=== PATIENT | male | born 1965 | race African-American/Black ===

== ENCOUNTER 2018-08-23 11:27 | Inpatient (IN) | payer OTHER ==
[2018-08-23 13:07] VITALS: BMI 21.7
--- NOTE | 2018-08-23 15:35 | HP ---
CIWA Score Nausea/Vomitin-No Nausea/No Vomiting Muscle Tremors: 4-Moderate,w/Arms Extend Anxiety: 4-Mod. Anxious/Guarded Agitation: 4-Moderately Restless Paroxysmal Sweats: 3 Orientation: 0-Oriented Tacttile Disturbances: 0-None Auditory Disturbances: 0-None Visual Disturbances: 0-None Headache: 0-None Present CIWA-Ar Total Score: 15 - Admission Criteria OASAS Guidelines: Admission for Medically Managed Detox: Requires at least one of the followin. CIWA greater than 12 2. Seizures within the past 24 hours 3. Delirium tremens within the past 24 hours 4. Hallucinations within the past 24 hours 5. Acute intervention needed for co occurring medical disorder 6. Acute intervention needed for co occurring psychiatric disorder 7. Severe withdrawal that cannot be handled at a lower level of care (continued vomiting, continued diarrhea, abnormal vital signs) requiring intravenous medication and/or fluids 8. Admission ROS [facility] Chief Complaint: I am an alcoholic and need help. I was sober for about 3yrs and recently relapsed. Allergies/Adverse Reactions: Allergies Allergy/AdvReac Type Severity Reaction Status Date / Time egg Allergy Severe Hives Verified 12/04/13 13:24 peanut Allergy Severe Hives Verified 12/04/13 13:24 History of Present Illness: pt is a 52yrold male with a 3yr of sobriety and recently relapsed seeking treatment for his alcohol dependence. Exam Limitations: No Limitations - Ebola screening Have you traveled outside of the country in the last 21 days: No Have you had contact with anyone from an Ebola affected area: No Have you been sick,other than usual withdrawal symptoms: No Do you have a fever: No - Review of Systems Constitutional: Chills, Diaphoresis, Loss of Appetite, Night Sweats, Changes in sleep EENT: reports: No Symptoms Reported Respiratory: reports: No Symptoms reported Cardiac: reports: Syncope GI: reports: Diarrhea, Poor Appetite, Poor Fluid Intake : reports: No Symptoms Reported Musculoskeletal: reports: No Symptoms Reported Integumentary: reports: Flushing, Sweating Endocrine: reports: Excessive Sweating, Flushing, Intolerance to Cold, Intolerance to Heat Hematology: reports: No Symptoms Reported Psychiatric: reports: Judgement Intact, Mood/Affect Appropiate, Orientated x3, Agitated, Anxious Other Systems: Reviewed and Negative Patient History - Patient Medical History Hx Anemia: No Hx Asthma: No Hx Chronic Obstructive Pulmonary Disease (COPD): No Hx Cancer: No Hx Cardiac Disorders: No Hx Congestive Heart Failure: No Hx Hypertension: Yes (lisinopril 20mg qdaily) Hx Hypercholesterolemia: No Hx Pacemaker: No HX Cerebrovascular Accident: No Hx Seizures: No Hx Dementia: No Hx Diabetes: Yes (on metformin 500mg bid) Hx Gastrointestinal Disorders: No Hx Liver Disease: No Hx Genitourinary Disorders: No Hx Sexually Transmitted Disorders: No Hx Renal Disease (ESRD): No Hx Thyroid Disease: No Hx Human Immunodeficiency Virus (HIV): No (negative 4 months ago) Hx Hepatitis C: No Hx Depression: No Hx Suicide Attempt: No (denies) Hx Bipolar Disorder: No Hx Schizophrenia: No - Patient Surgical History Past Surgical History: No Hx Neurologic Surgery: No Hx Cataract Extraction: No Hx Cardiac Surgery: No Hx Lung Surgery: No Hx Breast Surgery: No Hx Breast Biopsy: No Hx Abdominal Surgery: No Hx Appendectomy: No Hx Cholecystectomy: No Hx Genitourinary Surgery: No Hx Section: No Hx Orthopedic Surgery: No Anesthesia Reaction: No - PPD History Previous Implant?: Yes Documented Results: Negative w/o proof - Reproductive History Patient is a Female of Child Bearing Age (11 -55 yrs old): No - Smoking Cessation Smoking history: Current every day smoker Have you smoked in the past 12 months: Yes Aproximately how many cigarettes per day: 20 Hx Chewing Tobacco Use: No Initiated information on smoking cessation: Yes 'Breaking Loose' booklet given: 08/23/18 - Substance & Tx. History Hx Alcohol Use: Yes Hx Substance Use: No Substance Use Type: Alcohol Hx Substance Use Treatment: Yes (last detox 2013 [facility]) - Substances abused Alcohol Substance route: Oral Frequency: Daily Amount used: 1/5 - 1 pint daily Age of first use: 12 Date of last use: 08/22/18 Family Disease History - Family Disease History Family Disease History: Diabetes: Father () Admission Physical Exam BHS - Vital Signs Vital Signs: Vital Signs - 24 hr 08/23/18 12:58 Temperature 97.8 F Pulse Rate 82 Respiratory 18 Rate Blood Pressure 164/84 - Physical General Appearance: Yes: Appropriately Dressed, Moderate Distress, Tremorous, Irritable, Sweating, Anxious HEENTM: Yes: Hearing grossly Normal, Normal Voice, Nasal Congestion, Rhinorrhea Respiratory: Yes: Lungs Clear, Normal Breath Sounds, No Respiratory Distress Neck: Yes: No masses,lesions,Nodules Breast: Yes: Within Normal Limits Cardiology: Yes: Regular Rhythm, Regular Rate, S1, S2 Abdominal: Yes: Normal Bowel Sounds, Non Tender, Soft Genitourinary: Yes: Within Normal Limits Back: Yes: Normal Inspection Musculoskeletal: Yes: full range of Motion, Back pain Extremities: Yes: Normal Capillary Refill, Normal Inspection, Non-Tender, Tremors Neurological: Yes: Fully Oriented, Alert, Normal Response Integumentary: Yes: Normal Color, Diaphoresis Lymphatic: Yes: Within Normal Limits - Diagnostic (1) Nicotine dependence Current Visit: Yes Status: Chronic Qualifiers: Nicotine product type: cigarettes Substance use status: uncomplicated Qualified Code(s): F17.210 - Nicotine dependence, cigarettes, uncomplicated (2) Weight decreased Current Visit: Yes Status: Chronic (3) Alcohol dependence with uncomplicated withdrawal Current Visit: Yes Status: Acute (4) Hypertension Current Visit: Yes Status: Acute (5) Diabetes mellitus Current Visit: Yes Status: Chronic Qualifiers: Diabetes mellitus type: type 1 Diabetes mellitus complication status: without complication Qualified Code(s): E10.9 - Type 1 diabetes mellitus without complications Cleared for Admission S - Detox or Rehab [facility] Level of Care: Medically Managed Detox Regimen/Protocol: Librium Breathalyzer - Breathalyzer Breathalyzer: 0.023 Urine Drug Screen - Test Device Lot number: [id number] Expiration date: 04/27/20 - Control Is test valid?: Yes - Results Drug screen NEGATIVE: No Urine drug screen results: MTD-Methadone Inpatient Rehab Admission - Rehab Decision to Admit Inpatient rehab admission?: No
[2018-08-23] MEDS ORDERED: MAGNESIUM HYDROX 2400MG/30ML ORAL SUSPENSION 30 ML CUP PO PRN (15:43)
[2018-08-23] MEDS ORDERED: MAGNESIUM CITRATE 300 ML BOTTLE PO PRN (15:43)
[2018-08-23] MEDS ORDERED: chlordiazePOXIDE HCL 25 MG CAPSULE PO PRN (15:43)
[2018-08-23] MEDS ORDERED: ACETAMINOPHEN 325 MG TABLET (FP) PO PRN ×2 (15:43)
[2018-08-23] MEDS ORDERED: MENTHOL/PHENOL 1 EACH UD MM PRN (15:43)
[2018-08-23] MEDS ORDERED: DICYCLOMINE HCL 10 MG CAPSULE PO PRN (15:43)
[2018-08-23] MEDS ORDERED: METHOCARBAMOL 500 MG TABLET PO PRN (15:43)
[2018-08-23] MEDS ORDERED: ONDANSETRON *ODT* 4 MG TABLET SL PRN (15:43)
[2018-08-23] MEDS ORDERED: IBUPROFEN 400 MG TABLET (FP) PO PRN (15:43)
[2018-08-23] MEDS ORDERED: MAG HYDROX/AL HYDROX/SIMETH 30 ML UNIT-DOSE CUP PO PRN (15:43)
[2018-08-23] MEDS: chlordiazePOXIDE HCL 25 MG CAPSULE PO SCH ×2 (18:12→22:41)
[2018-08-23] MEDS: metFORMIN HCL 500 MG TABLET (FP) PO SCH (18:12)
[2018-08-23] MEDS: NICOTINE POLACRILEX 4 MG GUM BUC PRN ×2 (18:20→20:36)
[2018-08-23] MEDS: THIAMINE HCL 100 MG TABLET (FP) PO SCH (22:41)
[2018-08-23] MEDS: MELATONIN 5 MG TABLETS PO PRN (22:41)
[2018-08-24] MEDS ORDERED: METHADONE HCL 40 MG DISPERSABLE TABLET ONE (04:04)
[2018-08-24] MEDS ORDERED: METHADONE HCL 10 MG TABLET ONE (04:04)
[2018-08-24] MEDS ORDERED: METHADONE 40 MG, METHADONE 10 MG PO SCH ×2 (06:00→10:00)
[2018-08-24] MEDS: metFORMIN HCL 500 MG TABLET (FP) PO SCH ×2 (06:27→17:21)
[2018-08-24] MEDS: chlordiazePOXIDE HCL 25 MG CAPSULE PO SCH ×4 (06:27→22:31)
[2018-08-24] MEDS: NICOTINE POLACRILEX 4 MG GUM BUC PRN ×3 (09:29→17:23)
[2018-08-24] MEDS ORDERED: METHADONE HCL 10 MG TABLET PO SCH (10:00)
[2018-08-24 11:01] LABS: HEMOGLOBIN 14.1 GM/dL (11.7-16.9); MCHC 33.7 g/dl (32.0-35.9); MEAN CELL VOLUME 89.2 fl (80-96); MEAN PLT VOLUME 8.9 fl (7.5-11.1); PLATELET COUNT 200 K/MM3 (134-434); RBC 4.71 M/mm3 (4.00-5.60); RDW 15.7 % (11.9-15.9); WHITE BLOOD COUNT 6.1 K/mm3 (4.0-10.0)
[2018-08-24 11:07] LABS: ALBUMIN 3.3 g/dl (3.4-5.0); BILIRUBIN,TOTAL 0.5 mg/dL (0.2-1); BLOOD UREA NITROGEN 8.7 mg/dL (7-18); CALCIUM 8.9 mg/dL (8.5-10.1); CREATININE 0.7 mg/dL (0.55-1.3); POTASSIUM 3.9 mmol/L (3.5-5.1); TOT PROT 6.7 g/dl (6.4-8.2)
--- NOTE | 2018-08-24 11:13 | PN ---
S CIWA - CIWA Score Nausea/Vomitin-No Nausea/No Vomiting Muscle Tremors: 3 Anxiety: 3 Agitation: 3 Paroxysmal Sweats: 3 Orientation: 0-Oriented Tacttile Disturbances: 0-None Auditory Disturbances: 0-None Visual Disturbances: 0-None Headache: 0-None Present CIWA-Ar Total Score: 12 BHS Progress Note (SOAP) Subjective: sweats interrupted sleep agitation irritable i want my methadone to be given at 10am daily. Objective: 08/24/18 11:12 Vital Signs Temperature 97.9 F 08/24/18 09:24 Pulse Rate 62 08/24/18 09:24 Respiratory Rate 18 08/24/18 09:24 Blood Pressure 134/76 08/24/18 09:24 O2 Sat by Pulse Oximetry (%) Laboratory Tests 08/23/18 08/24/18 08/24/18 16:00 06:26 07:30 Sodium 142 Potassium 3.9 Chloride 106 Carbon Dioxide 30 Anion Gap 6 L BUN 8.7 Creatinine 0.7 Est GFR (CKD-EPI)AfAm 123.13 Est GFR (CKD-EPI)NonAf 106.24 POC Glucometer 68 118 Random Glucose 146 H Calcium 8.9 Total Bilirubin 0.5 AST 88 H ALT 62 H Alkaline Phosphatase 60 Total Protein 6.7 Albumin 3.3 L labs noted aaox3 ambulating no acute distress Assessment: 08/24/18 11:12 withdrawal sx Plan: continue detox increase fluids methadone maintenance will continue to be given at 10am as per pt request
[2018-08-24] MEDS: LISINOPRIL 20 MG TABLET (FP) PO SCH (12:22)
[2018-08-24] MEDS: PRENATAL VITAMINS W/ FOLIC ACID TABLET (FP) PO SCH (12:22)
[2018-08-24] MEDS: ASPIRIN 81 MG CHEWABLE TABLETS PO SCH (12:22)
[2018-08-24] MEDS: hydrOXYzine PAMOATE 25 MG CAPSULE (FP) PO PRN (12:27)
--- NOTE | 2018-08-24 13:42 | EKG ---
Test Reason : Blood Pressure : / mmHG Vent. Rate : 065 BPM Atrial Rate : 065 BPM P-R Int : 136 ms QRS Dur : 072 ms QT Int : 420 ms P-R-T Axes : 077 024 034 degrees QTc Int : 436 ms NORMAL SINUS RHYTHM NORMAL ECG NO PREVIOUS ECGS AVAILABLE Confirmed by LAWRENCE KANG MD ([id number]) on 08/24/2018 1:41:55 PM Referred By: Confirmed By:LAWRENCE KANG MD
[2018-08-24] MEDS: THIAMINE HCL 100 MG TABLET (FP) PO SCH (22:31)
[2018-08-24] MEDS: MELATONIN 5 MG TABLETS PO PRN (22:32)
[2018-08-25] MEDS: metFORMIN HCL 500 MG TABLET (FP) PO SCH ×2 (06:15→17:52)
[2018-08-25] MEDS: chlordiazePOXIDE HCL 25 MG CAPSULE PO SCH ×2 (06:15→10:26)
[2018-08-25] MEDS: NICOTINE POLACRILEX 4 MG GUM BUC PRN ×3 (08:39→17:58)
[2018-08-25] MEDS ORDERED: METHADONE HCL 40 MG DISPERSABLE TABLET ONE (08:56)
[2018-08-25] MEDS ORDERED: METHADONE HCL 10 MG TABLET ONE (08:56)
[2018-08-25] MEDS: ASPIRIN 81 MG CHEWABLE TABLETS PO SCH (10:26)
[2018-08-25] MEDS: METHADONE 40 MG, METHADONE 10 MG PO SCH (10:26)
[2018-08-25] MEDS: PRENATAL VITAMINS W/ FOLIC ACID TABLET (FP) PO SCH (10:26)
[2018-08-25] MEDS: hydrOXYzine PAMOATE 25 MG CAPSULE (FP) PO PRN ×2 (10:33→22:51)
--- NOTE | 2018-08-25 11:49 | PN ---
[facility] CIWA - CIWA Score Nausea/Vomitin-No Nausea/No Vomiting Muscle Tremors: 3 Anxiety: 2 Agitation: 3 Paroxysmal Sweats: 2 Orientation: 0-Oriented Tacttile Disturbances: 0-None Auditory Disturbances: 0-None Visual Disturbances: 0-None Headache: 0-None Present CIWA-Ar Total Score: 10 S Progress Note (SOAP) Subjective: sweats chills body aches Objective: 08/25/18 11:47 Vital Signs Temperature 97.9 F 08/25/18 09:23 Pulse Rate 89 08/25/18 09:23 Respiratory Rate 17 08/25/18 09:23 Blood Pressure 101/76 08/25/18 09:23 O2 Sat by Pulse Oximetry (%) Laboratory Tests 08/23/18 08/24/18 08/24/18 16:00 06:26 07:30 WBC 6.1 RBC 4.71 Hgb 14.1 Hct 42.0 MCV 89.2 MCH 30.0 MCHC 33.7 RDW 15.7 Plt Count 200 D MPV 8.9 Sodium Potassium Chloride Carbon Dioxide Anion Gap BUN Creatinine Est GFR (CKD-EPI)AfAm Est GFR (CKD-EPI)NonAf POC Glucometer 68 118 Random Glucose Calcium Total Bilirubin AST ALT Alkaline Phosphatase Total Protein Albumin RPR Titer HIV 1&2 Antibody Screen HIV P24 Antigen 08/24/18 08/24/18 08/24/18 07:30 07:30 07:30 WBC RBC Hgb Hct MCV MCH MCHC RDW Plt Count MPV Sodium 142 Potassium 3.9 Chloride 106 Carbon Dioxide 30 Anion Gap 6 L BUN 8.7 Creatinine 0.7 Est GFR (CKD-EPI)AfAm 123.13 Est GFR (CKD-EPI)NonAf 106.24 POC Glucometer Random Glucose 146 H Calcium 8.9 Total Bilirubin 0.5 AST 88 H ALT 62 H Alkaline Phosphatase 60 Total Protein 6.7 Albumin 3.3 L RPR Titer Nonreactive HIV 1&2 Antibody Screen Negative HIV P24 Antigen Negative 08/24/18 08/25/18 16:52 06:18 WBC RBC Hgb Hct MCV MCH MCHC RDW Plt Count MPV Sodium Potassium Chloride Carbon Dioxide Anion Gap BUN Creatinine Est GFR (CKD-EPI)AfAm Est GFR (CKD-EPI)NonAf POC Glucometer 122 142 Random Glucose Calcium Total Bilirubin AST ALT Alkaline Phosphatase Total Protein Albumin RPR Titer HIV 1&2 Antibody Screen HIV P24 Antigen aaox3 ambulating no acute distress Assessment: 08/25/18 11:48 mild withdrawal sx Plan: continue detox increase fluids
[2018-08-25] MEDS: LISINOPRIL 20 MG TABLET (FP) PO SCH (12:50)
[2018-08-25] MEDS: chlordiazePOXIDE HCL 10 MG CAPSULE PO SCH ×2 (17:52→22:46)
[2018-08-25] MEDS: MELATONIN 5 MG TABLETS PO PRN (22:46)
[2018-08-25] MEDS: THIAMINE HCL 100 MG TABLET (FP) PO SCH (22:46)
[2018-08-26] MEDS: chlordiazePOXIDE HCL 10 MG CAPSULE PO SCH ×3 (05:22→17:00)
[2018-08-26] MEDS: metFORMIN HCL 500 MG TABLET (FP) PO SCH ×2 (06:18→17:00)
[2018-08-26] MEDS: NICOTINE POLACRILEX 4 MG GUM BUC PRN ×5 (08:41→22:11)
[2018-08-26] MEDS ORDERED: METHADONE HCL 40 MG DISPERSABLE TABLET ONE (09:06)
[2018-08-26] MEDS ORDERED: METHADONE HCL 10 MG TABLET ONE (09:06)
[2018-08-26] MEDS: METHADONE 40 MG, METHADONE 10 MG PO SCH (10:27)
[2018-08-26] MEDS: PRENATAL VITAMINS W/ FOLIC ACID TABLET (FP) PO SCH (10:27)
[2018-08-26] MEDS: ASPIRIN 81 MG CHEWABLE TABLETS PO SCH (10:27)
[2018-08-26] MEDS: LISINOPRIL 20 MG TABLET (FP) PO SCH (10:27)
--- NOTE | 2018-08-26 10:48 | PN ---
S CIWA - CIWA Score Nausea/Vomitin-No Nausea/No Vomiting Muscle Tremors: 2 Anxiety: 2 Agitation: 0-Normal Activity Paroxysmal Sweats: 3 Orientation: 0-Oriented Tacttile Disturbances: 0-None Auditory Disturbances: 0-None Visual Disturbances: 0-None Headache: 2-Mild CIWA-Ar Total Score: 9 S Progress Note (SOAP) Subjective: c/o sweats, mild headache, shakes, and anxiety. Objective: 08/26/18 10:47 Vital Signs 08/26/18 08/26/18 06:00 10:45 Temperature 97.7 F 97.7 F Pulse Rate 71 88 Respiratory 18 18 Rate Blood Pressure 147/87 132/79 Lab Results WBC 6.1 K/mm3 (4.0-10.0) 08/24/18 07:30 RBC 4.71 M/mm3 (4.00-5.60) 08/24/18 07:30 Hgb 14.1 GM/dL (11.7-16.9) 08/24/18 07:30 Hct 42.0 % (35.4-49) 08/24/18 07:30 MCV 89.2 fl (80-96) 08/24/18 07:30 MCHC 33.7 g/dl (32.0-35.9) 08/24/18 07:30 RDW 15.7 % (11.9-15.9) 08/24/18 07:30 Plt Count 200 K/MM3 (134-434) D 08/24/18 07:30 Sodium 142 mmol/L (136-145) 08/24/18 07:30 Potassium 3.9 mmol/L (3.5-5.1) 08/24/18 07:30 Chloride 106 mmol/L (98-107) 08/24/18 07:30 Carbon Dioxide 30 mmol/L (21-32) 08/24/18 07:30 Anion Gap 6 MMOL/L (8-16) L 08/24/18 07:30 BUN 8.7 mg/dL (7-18) 08/24/18 07:30 Creatinine 0.7 mg/dL (0.55-1.3) 08/24/18 07:30 Random Glucose 146 mg/dL (74-106) H 08/24/18 07:30 Calcium 8.9 mg/dL (8.5-10.1) 08/24/18 07:30 Labs noted. Assessment: 08/26/18 10:47 AOX3, in no acute distress Full ROM, ambulating in the unit. withdrawal symptoms. Plan: continue detox.
[2018-08-26] MEDS: hydrOXYzine PAMOATE 25 MG CAPSULE (FP) PO PRN ×2 (12:32→22:10)
[2018-08-26] MEDS: THIAMINE HCL 100 MG TABLET (FP) PO SCH (22:09)
[2018-08-26] MEDS: MELATONIN 5 MG TABLETS PO PRN (22:09)
[2018-08-27] MEDS: chlordiazePOXIDE HCL 10 MG CAPSULE PO SCH ×2 (05:43→18:02)
[2018-08-27] MEDS: metFORMIN HCL 500 MG TABLET (FP) PO SCH ×2 (07:23→18:02)
[2018-08-27] MEDS ORDERED: METHADONE HCL 10 MG TABLET ONE (09:18)
[2018-08-27] MEDS ORDERED: METHADONE HCL 40 MG DISPERSABLE TABLET ONE (09:18)
[2018-08-27] MEDS: ASPIRIN 81 MG CHEWABLE TABLETS PO SCH (10:52)
[2018-08-27] MEDS: PRENATAL VITAMINS W/ FOLIC ACID TABLET (FP) PO SCH (10:52)
[2018-08-27] MEDS: METHADONE 40 MG, METHADONE 10 MG PO SCH (10:52)
[2018-08-27] MEDS: LISINOPRIL 20 MG TABLET (FP) PO SCH (10:53)
[2018-08-27] MEDS: hydrOXYzine PAMOATE 25 MG CAPSULE (FP) PO PRN (10:55)
[2018-08-27] MEDS: NICOTINE POLACRILEX 4 MG GUM BUC PRN ×3 (13:20→21:08)
--- NOTE | 2018-08-27 16:16 | PN ---
S CIWA - CIWA Score Nausea/Vomitin-No Nausea/No Vomiting Muscle Tremors: None Anxiety: 2 Agitation: 2 Paroxysmal Sweats: 2 Orientation: 0-Oriented Tacttile Disturbances: 0-None Auditory Disturbances: 0-None Visual Disturbances: 0-None Headache: 0-None Present CIWA-Ar Total Score: 6 BHS Progress Note (SOAP) Subjective: Interrupted sleep Objective: 08/27/18 16:14 Last Vital Signs Temp Pulse Resp BP Pulse Ox 98.1 F 80 16 122/86 08/27/18 14:27 08/27/18 14:27 08/27/18 14:27 08/27/18 14:27 Laboratory Tests 08/23/18 08/24/18 08/24/18 16:00 06:26 07:30 WBC 6.1 RBC 4.71 Hgb 14.1 Hct 42.0 MCV 89.2 MCH 30.0 MCHC 33.7 RDW 15.7 Plt Count 200 D MPV 8.9 Sodium Potassium Chloride Carbon Dioxide Anion Gap BUN Creatinine Est GFR (CKD-EPI)AfAm Est GFR (CKD-EPI)NonAf POC Glucometer 68 118 Random Glucose Calcium Total Bilirubin AST ALT Alkaline Phosphatase Total Protein Albumin RPR Titer HIV 1&2 Antibody Screen HIV P24 Antigen 08/24/18 08/24/18 08/24/18 07:30 07:30 07:30 WBC RBC Hgb Hct MCV MCH MCHC RDW Plt Count MPV Sodium 142 Potassium 3.9 Chloride 106 Carbon Dioxide 30 Anion Gap 6 L BUN 8.7 Creatinine 0.7 Est GFR (CKD-EPI)AfAm 123.13 Est GFR (CKD-EPI)NonAf 106.24 POC Glucometer Random Glucose 146 H Calcium 8.9 Total Bilirubin 0.5 AST 88 H ALT 62 H Alkaline Phosphatase 60 Total Protein 6.7 Albumin 3.3 L RPR Titer Nonreactive HIV 1&2 Antibody Screen Negative HIV P24 Antigen Negative 08/24/18 08/25/18 08/25/18 16:52 06:18 17:59 WBC RBC Hgb Hct MCV MCH MCHC RDW Plt Count MPV Sodium Potassium Chloride Carbon Dioxide Anion Gap BUN Creatinine Est GFR (CKD-EPI)AfAm Est GFR (CKD-EPI)NonAf POC Glucometer 122 142 193 Random Glucose Calcium Total Bilirubin AST ALT Alkaline Phosphatase Total Protein Albumin RPR Titer HIV 1&2 Antibody Screen HIV P24 Antigen 08/26/18 08/26/18 08/27/18 05:22 16:52 05:42 WBC RBC Hgb Hct MCV MCH MCHC RDW Plt Count MPV Sodium Potassium Chloride Carbon Dioxide Anion Gap BUN Creatinine Est GFR (CKD-EPI)AfAm Est GFR (CKD-EPI)NonAf POC Glucometer 127 197 171 Random Glucose Calcium Total Bilirubin AST ALT Alkaline Phosphatase Total Protein Albumin RPR Titer HIV 1&2 Antibody Screen HIV P24 Antigen Labs reviewed: hyperglycemia Assessment: 08/27/18 16:14 Withdrawal symptoms Hyperglycemia noted Plan: Continue detox Encouraged PO water intake Scheduled for discharge tomorrow Hyperglycemia secondary to DMT2: continue metformin and other diabetic regimen, follow up with PCP for management
[2018-08-27] MEDS: MELATONIN 5 MG TABLETS PO PRN (22:17)
[2018-08-27] MEDS: THIAMINE HCL 100 MG TABLET (FP) PO SCH (23:51)
[2018-08-28] MEDS: metFORMIN HCL 500 MG TABLET (FP) PO SCH (06:28)
--- NOTE | 2018-08-28 09:10 | DS ---
[facility] Detox Discharge Summary Admission Date: 08/23/18 Discharge Date: 08/28/18 - History Present History: Alcohol Dependence - Physical Exam Results Vital Signs: Vital Signs Temperature 97.7 F 08/28/18 06:00 Pulse Rate 80 08/28/18 06:00 Respiratory Rate 18 08/28/18 06:00 Blood Pressure 145/72 08/28/18 06:00 O2 Sat by Pulse Oximetry (%) - Treatment Hospital Course: Detox Protocol Followed, Detoxed Safely, Responded well, Discharged Condition Good, Rehab Referral Accepted - Medication Discharge Medications: Ambulatory Orders metFORMIN HCL [Glucophage -] 500 mg PO BID@0700,1630 #60 tablet 12/07/13 Aspirin [ASA -] 81 mg PO DAILY 08/23/18 Lisinopril 20 mg PO DAILY 08/23/18 Methadone [Dolophine -] 50 mg PO DAILY 08/23/18 - Diagnosis (1) Nicotine dependence Current Visit: Yes Status: Chronic Qualifiers: Nicotine product type: cigarettes Substance use status: uncomplicated Qualified Code(s): F17.210 - Nicotine dependence, cigarettes, uncomplicated (2) Weight decreased Current Visit: Yes Status: Chronic (3) Alcohol dependence with uncomplicated withdrawal Current Visit: Yes Status: Chronic (4) Hypertension Current Visit: Yes Status: Chronic Qualifiers: Hypertension type: essential hypertension Qualified Code(s): I10 - Essential (primary) hypertension (5) Diabetes mellitus Current Visit: Yes Status: Chronic Qualifiers: Diabetes mellitus type: type 1 Diabetes mellitus complication status: without complication Qualified Code(s): E10.9 - Type 1 diabetes mellitus without complications - AMA Did Patient Leave Against Medical Advice: No (referred to [facility])
[2018-08-28] MEDS ORDERED: METHADONE HCL 10 MG TABLET ONE (09:18)
[2018-08-28] MEDS ORDERED: METHADONE HCL 40 MG DISPERSABLE TABLET ONE (09:18)
[2018-08-28 09:25] VITALS: BP 139/80; PULSE 79; TEMP 97.9
[2018-08-28] MEDS: ASPIRIN 81 MG CHEWABLE TABLETS PO SCH (09:40)
[2018-08-28] MEDS: PRENATAL VITAMINS W/ FOLIC ACID TABLET (FP) PO SCH (09:40)
[2018-08-28] MEDS: METHADONE 40 MG, METHADONE 10 MG PO SCH (09:40)
[2018-08-28] MEDS: LISINOPRIL 20 MG TABLET (FP) PO SCH (09:40)
[2018-08-28] MEDS: NICOTINE POLACRILEX 4 MG GUM BUC PRN (09:42)
== END 2018-08-28 10:16 | disposition home or self-care (01) | DRG 775 ==
LOC: YASAS 11:27 → Y6N 15:52
PROVIDERS: ADMIT Surgery; ATTEND Surgery
PROC: HZ2ZZZZ Detoxification Services for Substance Abuse Treatment (ICD-10-PCS; principal; 2018-08-23)
DX: F10.230 Alcohol dependence with withdrawal, uncomplicated (principal); F17.210 Nicotine dependence, cigarettes, uncomplicated; I10 Essential (primary) hypertension; R63.4 Abnormal weight loss; E10.65 Type 1 diabetes mellitus with hyperglycemia; Z91.010 Allergy to peanuts; Z91.012 Allergy to eggs; Z79.84 Long term (current) use of oral hypoglycemic drugs
CPT/HCPCS: 36415; 80053; 82962; 85027; 86593; 87389; 93005; 93010